=== PATIENT | female | born 1975 | race Caucasian/White ===

== ENCOUNTER → 2019-08-23 11:07 | Outpatient (CLI) | payer MEDICARE, SELFPAY ==
--- NOTE | 2019-08-23 11:10 | DI.MRI.S_ITS ---
PROCEDURE: MR HEAD/BRAIN WO/W CON INDICATIONS: MULTIPLE SCLEROSIS TECHNIQUE: Noncontrast sagittal and axial FLAIR, axial and coronal T2 fast spin echo, axial VIBE, axial gradient echo, axial diffusion and ADC through the brain. After the administration of contrast, axial and coronal VIBE with fat saturation through the brain. COMPARISON: [facility] , MR, MS BRAIN W & W/O CONT, 04/29/2009, 13:27. FINDINGS: Image quality: Excellent. CSF spaces: Ventricles are normal in size and shape. Basal cisterns are patent. No extra-axial fluid collections. Brain: No intracranial bleeds or mass effects. Bojorquez-white matter interface appears intact. Numerous bilateral periventricular and subcortical white matter signal changes are present. There is mild interval progression in numerous foci involving the centrum semiovale as the prior study dated 04/29/09. No associated enhancement. There is asymmetric right temporal lobe white matter signal change, which is new since the prior study. Chronic appearing left occipital lobe encephalomalacia. No abnormal intracranial enhancement. Diffusion weighted images show no acute ischemic insults. Brainstem appears normal. Normal intravascular flow voids are present. Skull and face: Calvarial marrow signal is normal. Orbits appear normal. Sinuses: Sinuses and mastoids are clear. IMPRESSION: Bilateral diffuse white matter signal abnormalities presumably reflecting the patient's given clinical history of multiple sclerosis, demonstrating interval progression since prior study dated 04/29/09, most notably, involving the anterior right temporal lobe white matter. No associated enhancement. Dictated by: Phoenix Wells M.D. on 08/23/2019 at 12:54 Approved by: Phoenix Wells M.D. on 08/23/2019 at 13:03
--- NOTE | 2019-08-23 11:10 | DI.MRI.S_ITS ---
PROCEDURE: MR CERVICAL SPINE WO/W CON INDICATIONS: MULTIPLE SCLEROSIS TECHNIQUE: Noncontrast sagittal T1 spin echo and T2 fast spin echo, sagittal STIR, sagittal PD fast spin echo, foraminal oblique sagittal T2 fast spin echo, axial gradient echo or T2 fast spin echo through the cervical spine. After the administration of contrast, sagittal and axial T1 spin echo with fat saturation through the cervical spine. COMPARISON: [facility] , MR, CERVICAL SPINE W&W/O CONTRAST, 04/29/2009, 13:53. FINDINGS: Image quality: Excellent. Alignment and curvature: Straightening of the normal lordotic curvature. Marrow: Multilevel degenerative endplate sclerosis and spurring. Diffuse facet arthropathy. Spinal cord: Visualized spinal cord is normal in size, without white matter lesions. No suspicious intramedullary enhancement. No cerebellar tonsillar herniation. Paraspinous soft tissues: No paravertebral masses or suspicious enhancement. C2-C3: Normal appearance. C3-C4: No canal or right foraminal stenosis. Minimal left foraminal narrowing C4-C5: Normal appearance. C5-C6: Mild canal narrowing. Mild right foraminal stenosis with questionable nerve root compression. No left foraminal stenosis. Limited comparison given differences in imaging protocol although probably grossly unchanged in axial pulse sequences. C6-C7: Mild left-sided canal narrowing. This has progressed since prior study. Moderate left foraminal stenosis with nerve root compression. This has progressed since prior study. No right foraminal stenosis. C7-T1: No canal stenosis. No left foraminal narrowing. Mild right foraminal stenosis with questionable nerve root compression. No definite interval change on axial pulse sequences. IMPRESSION: No suspicious cord signal abnormality or enhancement to suggest demyelination Interval progression in multilevel cervical spondylosis and facet arthropathy as above since 04/29/09. Dictated by: Phoenix Wells M.D. on 08/23/2019 at 13:04 Approved by: Phoenix Wells M.D. on 08/23/2019 at 13:50
== END ==
PROVIDERS: Referring Provider Psychiatry & Neurology Neurology; Visit Provider Psychiatry & Neurology Neurology
DX: G35 Multiple sclerosis (principal); M47.812 Spondylosis without myelopathy or radiculopathy, cervical region
CPT/HCPCS: 70553; 72156